=== PATIENT | female | born 1935 | race Caucasian/White ===

== ENCOUNTER 2018-10-28 19:43 | Inpatient (IN) | payer MEDICARE, OTHER ==
--- NOTE | 2018-10-28 20:06 | ED Physician Chart ---
ED Chief Complaint/HPI - Patient Information Date Seen:: 10/28/18 Time Seen:: 19:50 Chief Complaint:: aggressive behavior History of Present Illness:: At her extended care facility patient's been verbally abusive and striking out at staff. Patient was started on Augmentin 875 milligrams twice a day yesterday for cellulitis centered right elbow. Allergies:: Allergies Allergy/AdvReac Type Severity Reaction Status Date / Time lorazepam [From Ativan] AdvReac Verified 10/28/18 19:51 Vitals:: Vital Signs - 8 hr 10/28/18 19:45 Temp 98.1 F HR 61 RR 18 BP 113/52 O2 Sat % 98 Historian:: Patient Review:: Transfer documents Reviewed ED Review of Systems - Review of Systems General/Constitutional: No fever, No chills Skin: No skin lesions Head: No headache Eyes: No loss of vision ENT: No earache Neck: No neck pain Cardio Vascular: No chest pain Pulmonary: No SOB GI: No nausea, No vomiting, No diarrhea G/U: No dysuria Musculoskeletal: No bone or joint pain, No back pain, No muscle pain Endocrine: No polyuria Psychiatric: Prior psych history Hematopoietic: No bruising Allergic/Immuno: No urticaria Neurological: No syncope ED Past Medical History - Past Medical History Past Medical History: CAD, CVA/TIA, Seizures, Dementia, Other (abdominal hernia ; schizophrenia; depression; atrial fibrillation; anxiety) Family History: Other (unavailable) Social History: Care Facility Surgical History: other (unavailable) Psychiatricy History: Schizophrenia, Dementia Medication: Reviewed Family Medical History - Family Member Mother History Unknown: Yes ED Physical Exam - Physical Examination General/Constitutional: Well-developed, well-nourished, Alert Other Gen/Cons comments:: Patient is uncooperative for the physical examination Head: Atraumatic Eyes: Lids, conjuctiva normal, PERRL Skin: No rash, No ecchymosis Other Skin comments:: About 15 cm of erythema centered right elbow ENMT: External ears, nose nl Other ENMT comments:: Edentulous with upper dentures Neck: No nuchal rigidity Respiratory: Nl effort/Exclusion, Clear to Auscultation, No Wheeze/Rhonchi/Rales Other Cardio Vascular comments:: Patient uncooperative for auscultation of the heart or palpation of the pulse GI: No tenderness/rebounding/guarding, No organomegaly Extremities: Normal digits & nails Neuro/Psych: No focal deficits ED Labs/Radiology/EKG Results - Lab Results Results: Laboratory Results WBC 13.8 Th/cmm (4.8-10.8) H 10/28/18 20:15 RBC 4.36 Mil/cmm (3.80-5.20) 10/28/18 20:15 Hgb 13.8 gm/dL (12-16) 10/28/18 20:15 Hct 40.6 % (41.0-60) L 10/28/18 20:15 MCV 93.2 fl (81-100) 10/28/18 20:15 MCH 31.8 pg (27.0-31.0) H 10/28/18 20:15 MCHC Differential 34.1 pg (28.0-36.0) 10/28/18 20:15 RDW 16.7 % (11.5-20.0) 10/28/18 20:15 Plt Count 198 Th/cmm (150-400) 10/28/18 20:15 MPV 6.2 fl 10/28/18 20:15 Neutrophils % 83.4 % (40.0-80.0) H 10/28/18 20:15 Lymphocytes % 12.4 % (20.0-50.0) L 10/28/18 20:15 Monocytes % 3.8 % (2.0-10.0) 10/28/18 20:15 Eosinophils % 0.4 % (0.0-5.0) 10/28/18 20:15 Basophils % 0.0 % (0.0-2.0) 10/28/18 20:15 Sodium 136 mEq/L (136-145) 10/28/18 20:15 Potassium 4.0 mEq/L (3.5-5.1) 10/28/18 20:15 Chloride 100 mEq/L (98-107) 10/28/18 20:15 Carbon Dioxide 23.8 mEq/L (21.0-31.0) 10/28/18 20:15 Anion Gap 16.2 (7.0-16.0) H 10/28/18 20:15 BUN 20 mg/dL (7-25) 10/28/18 20:15 Creatinine 0.8 mg/dL (0.6-1.2) 10/28/18 20:15 Est GFR ( Amer) TNP 10/28/18 20:15 Est GFR (Non-Af Amer) TNP 10/28/18 20:15 BUN/Creatinine Ratio 25.0 10/28/18 20:15 Glucose 188 mg/dL (70-105) H 10/28/18 20:15 Calcium 8.3 mg/dL (8.6-10.3) L 10/28/18 20:15 Total Bilirubin 0.4 mg/dL (0.3-1.0) 10/28/18 20:15 AST 24 U/L (13-39) 10/28/18 20:15 ALT 60 U/L (7-52) H 10/28/18 20:15 Alkaline Phosphatase 45 U/L (34-104) 10/28/18 20:15 Total Protein 5.5 gm/dL (6.0-8.3) L 10/28/18 20:15 Albumin 3.2 gm/dL (3.7-5.3) L 10/28/18 20:15 Globulin 2.3 gm/dL 10/28/18 20:15 Albumin/Globulin Ratio 1.4 (1.0-1.8) 10/28/18 20:15 Triglycerides 217 mg/dL (<150) H 10/28/18 20:15 Cholesterol 179 mg/dL (<200) 10/28/18 20:15 LDL Cholesterol Direct 110 mg/dL (75-193) 10/28/18 20:15 HDL Cholesterol 55 mg/dL (23-92) 10/28/18 20:15 Valproic Acid 52.0 ug/mL (50.0-100.0) 10/28/18 20:15 - EKG Interpretations Rate & Rhythm: patient refused EKG but monitor showed normal sinus rhythm at a rate of 59 ED Assessment - Assessment General Assessment: For the cellulitis of her right arm patient may continue Augmentin 750 mg twice a day ED Septic Shock - . Is Septic Shock (SBP<90, OR Lactate>4 mmol\L) present?: No - <6hrs of presentation: Vital Signs: Vital Signs - 8 hr 10/28/18 19:45 Temp 98.1 F HR 61 RR 18 BP 113/52 O2 Sat % 98 ED Reassessment (Disposition) - Reassessment Reassessment Condition:: Unchanged - Diagnosis Diagnosis:: Aggressive behavior; dementia; anxiety; seizure disorder; cellulitis right arm; hyperglycemia; diabetes - Patient Disposition Admitted to:: [facility] Admitting Medical Physician:: Prabhu Wu Admitting Psych Physician:: Yomaira Aguirre Condition at Disposition:: Stable, Unchanged
[2018-10-28 20:26] LABS: % EOSINOPHILS 0.4 % (0.0-5.0); % LYMPHOCYTES 12.4 % (20.0-50.0); % MONOCYTES 3.8 % (2.0-10.0); % NEUTROPHILS 83.4 % (40.0-80.0); EOSINOPHILE ABSOLUTE 0.1 Th/cmm (0.1-0.4); HEMATOCRIT 40.6 % (41.0-60); HEMOGLOBIN 13.8 gm/dL (12-16); LYMPHOCYTE ABSOLUTE 1.7 Th/cmm (1.5-3.0); MEAN CELL VOLUME 93.2 fl (81-100); MEAN CORPUSCULAR HEMOGLOBIN 31.8 pg (27.0-31.0); MEAN CORPUSCULAR HGB CONC 34.1 pg (28.0-36.0); MEAN PLATELET VOLUME 6.2 fl; MONOCYTE ABSOLUTE 0.5 Th/cmm (0.3-1.0); NEUTROPHILE ABSOLUTE 11.5 Th/cmm (1.8-8.0); PLATELET COUNT 198 Th/cmm (150-400); RED BLOOD COUNT 4.36 Mil/cmm (3.80-5.20); RED CELL DISTRIBUTION WIDTH 16.7 % (11.5-20.0); WHITE BLOOD COUNT 13.8 Th/cmm (4.8-10.8)
[2018-10-28 20:55] LABS: ALB/GLOB RATIO 1.4 (1.0-1.8); ALBUMIN 3.2 gm/dL (3.7-5.3); ALKALINE PHOSPHATASE 45 U/L (34-104); ANION GAP 16.2 (7.0-16.0); BILIRUBIN,TOTAL 0.4 mg/dL (0.3-1.0); BUN - UREA NITROGEN 20 mg/dL (7-25); CALCIUM SERUM 8.3 mg/dL (8.6-10.3); CARBON DIOXIDE 23.8 mEq/L (21.0-31.0); CHLORIDE 100 mEq/L (98-107); CHOLESTEROL 179 mg/dL (<200); CREATININE - SERUM 0.8 mg/dL (0.6-1.2); GLUCOSE 188 mg/dL (70-105); HDL -HIGH DENSITY LIPOPROTEIN 55 mg/dL (23-92); SGOT 24 U/L (13-39); SGPT/ALT 60 U/L (7-52); SODIUM SERUM 136 mEq/L (136-145); TOTAL PROTEIN,SERUM 5.5 gm/dL (6.0-8.3); TRIGLYCERIDES 217 mg/dL (<150)
[2018-10-28 22:47] VITALS: BP 129/69
[2018-10-28] MEDS ORDERED: Magnesium Hydroxide (MOM) 30 mL UDC PO PRN (23:30)
[2018-10-29] MEDS: Amoxicillin/Clavulanat 875/125 Tab PO SCH ×2 (06:57→16:50)
[2018-10-29] MEDS: Multivitamin w/ Minerals Tab PO SCH (09:19)
[2018-10-29] MEDS ORDERED: Probiotic Screen MC PRN (13:00)
--- NOTE | 2018-10-29 18:50 | Psychiatric Evaluation ---
DATE OF SERVICE: 10/29/2018 INITIAL PSYCHIATRIC EVALUATION CHIEF COMPLAINT: Psychotic illness. HISTORY OF PRESENT ILLNESS: The patient is an 83-year-old female with a history of dementia and psychosis, who was sent from her [facility] facility for increased agitation, anger outburst, unprovoked. The patient is a very poor historian at this time. The patient was cleared through the ER and now she is on geropsychiatric unit. The patient's appetite is fair. The patient is disorganized. When approached of talk, she started to push the table away. PAST PSYCHIATRIC HISTORY: Psychosis, dementia and depression. PAST MEDICAL HISTORY: Refer to H and P. PAST PSYCHOSOCIAL HISTORY: The patient resides in a [facility] facility, requires complete care. FAMILY HISTORY: Noncontributory. MENTAL STATUS EXAM: The patient appears to be stated age. Speech is minimal, avoiding eye contact. The patient is oriented to person, not oriented to time or place. Insight is poor. Judgment fair. The patient appears to be paranoid, suspicious towards her surroundings, easily agitated. PATIENT'S STRENGTHS: The patient is passively accepting treatment. The patient's weakness, lack of insight. ASSESSMENT: Major depressive disorder with psychosis; dementia, Alzheimer's type. MEDICAL HISTORY: As per medical history stress severe. We will admit the patient for hospitalization. We will start individual and group therapy, assess psychopharmacological intervention. ESTIMATED LENGTH OF STAY: 7-8 days. CRITERIA FOR DISCHARGE: Improved condition. No agitation, further stabilization, aggressive air, safe disposition, outpatient treatment plan. [facility]# [id number]
[2018-10-30] MEDS: Amoxicillin/Clavulanat 875/125 Tab PO SCH ×2 (06:40→16:23)
[2018-10-30] MEDS: Multivitamin w/ Minerals Tab PO SCH (08:58)
--- NOTE | 2018-10-30 16:03 | History & Physical ---
ADMIT DATE: 10/29/2018 REASON FOR ADMISSION: Psychiatric evaluation. HISTORY OF PRESENT ILLNESS: This is an 83-year-old female with an underlying history of chronic AFib, seizure disorder, and hypertension, who lives at nursing facility, and [facility] for evaluation of underlying psychiatric illnesses by Dr. Aguirre. Dr. Aguirre requested a medical H and P on this patient. The patient's baseline seems very confused, difficult to communicate, and per nursing staff the patient is being treated for elbow cellulitis. She is currently on oral antibiotics. PAST MEDICAL HISTORY: ____. PAST SURGICAL HISTORY: ____. FAMILY HISTORY: None. SOCIAL HISTORY: Lives at a nursing facility. No reported alcohol, tobacco, or drug use. CURRENT MEDICATIONS: Per medication reconciliation. ALLERGIES: ALLERGIC TO LEVAQUIN. REVIEW OF SYSTEMS: Difficult to obtain and unreliable due to underlying confusion. PHYSICAL EXAMINATION: VITAL SIGNS: Temperature 97.6, pulse 87, respirations 20, blood pressure 170/85, 95% on room air. HEART: S1, S2 normal. LUNGS: Clear to auscultation. ABDOMEN: Soft, nontender. NEUROLOGIC: The patient is confused. Moves all extremities. SKIN: Right elbow erythema, mild swelling noted, multiple skin tears noted. EXTREMITIES: No edema. LABORATORY DATA: Available laboratory data has been reviewed. ASSESSMENT: 1. Cellulitis of right elbow. 2. Superficial skin care for bilateral upper extremities. 3. Chronic atrial fibrillation. 4. Hypertension. 5. ____. 6. Dementia ____. 7. Seizure disorders. 8. Overactive bladder. PLAN: The patient will be continued on Augmentin, continued on Xarelto. Continue on metoprolol, seizure medications, seizure precautions, and daily wound care. Psych management per psychiatrist. The patient's condition discussed with nursing staff. Thank you Dr. Aguirre for allowing me to participate in the care of this patient. JOB# [id number]
--- NOTE | 2018-10-30 23:19 | Progress Notes ---
DATE: 10/30/2018 SUBJECTIVE: The patient was seen, discussed with staff, chart reviewed. Still irritable, anxious, guarded, still paranoid, having yelling episodes, episodes of refusing care. The patient, however, starts to comply with medications. Appetite and sleep are fair. Insight is still limited. Judgment is impaired. ASSESSMENT: The patient is still in psychotic phase, highly still agitated and forgetful and confused. PLAN: Continue medication management. Continue supportive measures. Continue stabilization. The patient is taking Depakote and she can probably benefit from adding small dose of Seroquel. Monitor closely. JOB# [id number]
[2018-10-31] MEDS: Amoxicillin/Clavulanat 875/125 Tab PO SCH ×2 (06:35→16:41)
[2018-10-31] MEDS: Multivitamin w/ Minerals Tab PO SCH (08:33)
--- NOTE | 2018-10-31 14:00 | Progress Notes ---
DATE: 10/31/2018 SUBJECTIVE: Staff was spoken to. The patient is interviewed. Mood is noted to be irritable. Affect is constricted. Insight and judgment at this time are noted to be still impaired. Impulse control is noted to be limited. Coping skills are noted to be limited. The patient has been screaming and yelling and the patient needs to be redirected. The patient has no insight into her illness. ASSESSMENT: The patient is still impulsive. PLAN: To continue the patient with the supportive therapy. I encouraged the patient to verbalize the concerns rather than to act out. JOB# [id number]
--- NOTE | 2018-10-31 19:15 | Consultation ---
DATE OF CONSULTATION: 10/30/2018 REFERRING PHYSICIAN: Yomaira Aguirre M.D. TYPE OF CONSULTATION: Psychology. HISTORY OF PRESENT ILLNESS: The patient is an 83-year-old female. The following is by record review by the patient's self report. The patient is being admitted due to increased agitation and anger outbursts. Upon interview, the patient is guarded and suspicious and is not providing much information. The patient shook her head no to the question of experiencing any suicidal ideation , plan or intention. PAST MEDICAL HISTORY: Please see history and physical. PAST PSYCHIATRIC HISTORY: The patient has a history of dementia with psychosis and depression. The patient is under the care of a psychiatrist at her placement. The patient has been seen by this insurance writer in the past at her care home facility. The patient is under the care of a different psychologist currently. SUBSTANCE ABUSE HISTORY: The patient did not answer these questions. PSYCHOSOCIAL HISTORY: The patient is . The patient did not answer questions about other family members or having any children. The patient did not answer questions about occupational or educational history or [employer]ar[employer] affiliation. The patient did not answer questions about history of physical or sexual abuse or current legal problems. MENTAL STATUS EXAMINATION: The patient appears to be her stated age. The patient's attitude is guarded, but superficially cooperative. Eye contact is poor. Speech is minimal. Mood is irritable. Affect is constricted. Thought process shows to be confused. The patient denied any auditory or visual hallucinations or any delusions; however, there may be some paranoid ideation. The patient has been difficult to redirect on the unit. Impulse control is poor. Concentration is poor. The patient did not participate in the memory assessment. Sensorium is alert and oriented to self and place only. The patient did not participate in the interpretation of proverbs. Insight is poor. Judgment is poor. DIAGNOSTIC IMPRESSION: AXIS I: 1. History of dementia with behavioral disturbance. 2. Major depressive disorder with psychotic symptoms. AXIS II: Deferred. AXIS III: See H and P. TREATMENT PLAN: The patient has been seen by Dr. Aguirre for psychiatric evaluation and for the management of the patient's psychotropic medications. We will provide supportive psychotherapy to include reality orientation, differentiation and integration. We will provide de-escalation and limit setting as well as anger management. We will encourage the patient to demonstrate emotional and self-regulation. We will provide motivational enhancement for the patient to become compliant and stay compliant with all aspects of her care and treatment. We will provide coping strategies for phase of life issues. Thank you, Dr. Aguirre, for this consult and the opportunity to participate in this patient's care. JOB# [id number] MTDD
--- NOTE | 2018-10-31 20:01 | General Progress Note ---
Subjective - Review of Systems Service Date: 10/31/18 Subjective: Patient seen and examined with the nurse No new concern reported Objective - Results Result Diagrams: 10/28/18 20:15 10/28/18 20:15 Recent Labs: Laboratory Last Values WBC 13.8 Th/cmm (4.8-10.8) H 10/28/18 20:15 RBC 4.36 Mil/cmm (3.80-5.20) 10/28/18 20:15 Hgb 13.8 gm/dL (12-16) 10/28/18 20:15 Hct 40.6 % (41.0-60) L 10/28/18 20:15 MCV 93.2 fl (81-100) 10/28/18 20:15 MCH 31.8 pg (27.0-31.0) H 10/28/18 20:15 MCHC Differential 34.1 pg (28.0-36.0) 10/28/18 20:15 RDW 16.7 % (11.5-20.0) 10/28/18 20:15 Plt Count 198 Th/cmm (150-400) 10/28/18 20:15 MPV 6.2 fl 10/28/18 20:15 Neutrophils % 83.4 % (40.0-80.0) H 10/28/18 20:15 Lymphocytes % 12.4 % (20.0-50.0) L 10/28/18 20:15 Monocytes % 3.8 % (2.0-10.0) 10/28/18 20:15 Eosinophils % 0.4 % (0.0-5.0) 10/28/18 20:15 Basophils % 0.0 % (0.0-2.0) 10/28/18 20:15 Sodium 136 mEq/L (136-145) 10/28/18 20:15 Potassium 4.0 mEq/L (3.5-5.1) 10/28/18 20:15 Chloride 100 mEq/L (98-107) 10/28/18 20:15 Carbon Dioxide 23.8 mEq/L (21.0-31.0) 10/28/18 20:15 Anion Gap 16.2 (7.0-16.0) H 10/28/18 20:15 BUN 20 mg/dL (7-25) 10/28/18 20:15 Creatinine 0.8 mg/dL (0.6-1.2) 10/28/18 20:15 Est GFR ( Amer) TNP 10/28/18 20:15 Est GFR (Non-Af Amer) TNP 10/28/18 20:15 BUN/Creatinine Ratio 25.0 10/28/18 20:15 Glucose 188 mg/dL (70-105) H 10/28/18 20:15 Calcium 8.3 mg/dL (8.6-10.3) L 10/28/18 20:15 Total Bilirubin 0.4 mg/dL (0.3-1.0) 10/28/18 20:15 AST 24 U/L (13-39) 10/28/18 20:15 ALT 60 U/L (7-52) H 10/28/18 20:15 Alkaline Phosphatase 45 U/L (34-104) 10/28/18 20:15 Total Protein 5.5 gm/dL (6.0-8.3) L 10/28/18 20:15 Albumin 3.2 gm/dL (3.7-5.3) L 10/28/18 20:15 Globulin 2.3 gm/dL 10/28/18 20:15 Albumin/Globulin Ratio 1.4 (1.0-1.8) 10/28/18 20:15 Triglycerides 217 mg/dL (<150) H 10/28/18 20:15 Cholesterol 179 mg/dL (<200) 10/28/18 20:15 LDL Cholesterol Direct 110 mg/dL (75-193) 10/28/18 20:15 HDL Cholesterol 55 mg/dL (23-92) 10/28/18 20:15 TSH 0.72 uIU/ml (0.34-5.60) 10/28/18 20:15 Valproic Acid 52.0 ug/mL (50.0-100.0) 10/28/18 20:15 - Physical Exam Vitals and I&O: Vital Signs Temp 97.8 F 10/31/18 14:00 Pulse 88 10/31/18 14:00 Resp 20 10/31/18 14:00 BP 137/90 10/31/18 14:00 Pulse Ox 97 10/31/18 14:00 Intake & Output 0210/31/18 11/01/18 06:59 18:59 06:59 Intake Total 700 Balance 700 Intake: Oral 700 Other: # Voids 2 # Bowel Movements 0 Active Medications: Current Medications Acetaminophen (Tylenol) 650 mg PO Q6HR PRN PRN Reason: Pain or Fever >101 Stop: 12/27/18 23:27 Amoxicillin/Clavulanate Potassium (Augmentin 875-125mg) 1 tab PO BIDAC [facility] Stop: 11/04/18 16:31 Last Admin: 10/31/18 16:41 Dose: 1 tab Bupropion HCl (Wellbutrin) 100 mg PO BID [facility]; Protocol Stop: 12/28/18 08:59 Last Admin: 10/31/18 16:41 Dose: 100 mg Dexamethasone (Decadron) 4 mg PO BID [facility] Stop: 12/28/18 08:59 Last Admin: 10/31/18 16:41 Dose: 4 mg Divalproex Sodium (Depakote Dr) 250 mg PO 1700 [facility]; Protocol Stop: 12/28/18 16:59 Last Admin: 10/31/18 16:42 Dose: 250 mg Divalproex Sodium (Depakote Dr) 500 mg PO DAILY [facility]; Protocol Stop: 12/28/18 08:59 Last Admin: 10/31/18 08:31 Dose: 500 mg Docusate Sodium (Colace) 100 mg PO BID [facility] Stop: 12/28/18 08:59 Last Admin: 10/31/18 16:42 Dose: 100 mg Donepezil HCl (Aricept) 5 mg PO DAILY [facility] Stop: 12/28/18 08:59 Last Admin: 10/31/18 08:31 Dose: 5 mg Estradiol (Estrace) 2 mg PO DAILY [facility]; Protocol Stop: 12/28/18 08:59 Last Admin: 10/31/18 08:32 Dose: 2 mg Magnesium Hydroxide (Milk Of Magnesia) 30 ml PO Q6HR PRN PRN Reason: Constipation Stop: 12/27/18 23:29 Metoprolol Tartrate (Lopressor) 12.5 mg PO BID [facility] Stop: 12/28/18 08:59 Last Admin: 10/31/18 16:42 Dose: Not Given Miscellaneous (Probiotic Screen) 1 ea MC PRN PRN PRN Reason: PROTOCOL Stop: 12/28/18 12:59 Mupirocin (Bactroban Oint) 1 appl NS BID [facility] Stop: 11/05/18 09:01 Last Admin: 10/31/18 16:42 Dose: Not Given Nitroglycerin (Nitrostat) 0.4 mg SL Q5MIN PRN PRN Reason: Chest Pain Stop: 12/28/18 11:19 Oxcarbazepine (Trileptal) 300 mg PO BID [facility]; Protocol Stop: 12/28/18 08:59 Last Admin: 10/31/18 16:43 Dose: 300 mg Oxybutynin Chloride (Ditropan) 5 mg PO BID [facility] Stop: 12/28/18 08:59 Last Admin: 10/31/18 16:43 Dose: 5 mg Quetiapine Fumarate (Seroquel) 12.5 mg PO HS [facility]; Protocol Stop: 12/29/18 20:59 Last Admin: 10/31/18 03:12 Dose: Not Given Rivaroxaban (Xarelto) 15 mg PO DAILY [facility] Stop: 12/28/18 08:59 Last Admin: 10/31/18 08:33 Dose: 15 mg Zolpidem Tartrate (Ambien) 5 mg PO HS PRN PRN Reason: Insomnia Stop: 12/27/18 23:20 Cardiovascular: Regular rate Lungs: Clear to auscultation Skin: Other (Bilateral arm skin tear ) Assessment/Plan - Assessment Assessment: Bilateral arm superficial lacertion Right elbow cellutitis HTN Seizure disorder Dementia with behaviour disturbance - Plan Plan: Continue augmentin Continue daily wound care Metoprolol Aspiration and fall precaution Psych follow up Nutritional Asmnt/Malnutr-PDOC - Dietary Evaluation Malnutrition Findings (Please click <Entered> for more info): Nutritional Asmnt/Malnutrition Start: 10/29/18 15: 30 Text: Status: Complete Freq: Protocol: Document 10/29/18 15:30 LCHENG (Rec: 10/29/18 15:42 [id number] [id number]) Nutritional Asmnt/Malnutrition Patient General Information Nutritional Screening High Risk Consult Diagnosis psychosis Pertinent Medical Hx/Surgical Hx CAD, CVA/TID, seizure, dementia, abdominal hernia, schizophrenia, depression, afib, anxiety, schizophrenia Subjective Information Consult received for elevated glucose and multiple skin tear . Pt seen sitting in cristhian- chair having lunch. pt is a feeder, eats well. Current Diet Order/ Nutrition Support [facility] soft chopped, ground meat Pertinent Medications colace, amoxicillin Pertinent Labs 10/28 Glucose 188, Ca 8.3, Alb 3.2 Nutritional Hx/Data Height 1.63 m Height (Calculated Centimeters) 162.6 Current Weight (lbs) 63.503 kg Weight (Calculated Kilograms) 63.5 Weight (Calculated Grams) 84947.9 [place] Body Weight 120 Body Mass Index (BMI) 24.0 Weight Status Approriate GI Symptoms GI Symptoms None Last BM not indicated Difficult in: None Skin Integrity/Comment: multiple skin tears bilateral upper extremities per wound care note hoa 15 Estimated Nutritional Goals BEE in Kcals: Using Current wt Calories/Kcals/Kg 25-30 Kcals Calculated 0989-2585 Protein: Using Current wt Protein g/k Protein Calculated 64 Fluid: ml 1600-1920ml (1ml/kcal) Nutritional Problem 1. Problem Problem altered nutrition related labs Etiology possible endocrine dysfunction Signs/Symptoms: glucose 188 No current Nutrition Prob Problem n/A Malnutrition Alert Is there a minimum of two criteria No selected? Query Text:Check all the applicable criteria. A minimum of two criteria are recommended for diagnosis of either severe or non-severe malnutrition. Malnutrition Related to Morbid Obesity Malnutrition related to morbid obesity No Intervention/Recommendation Comments 1. Continue with [facility] soft chopped diet wtih grounded meat as ordered. Add Ensure one bottle daily since we do not carry Resource. 2. Monitor glucose level, consider checking A1c level to assess the need for CCHO diet . If glucose continue elevated , recommend adding CCHO diet. 2. Monitor PO intake, wt, labs and skin integrity 3. F/U as moderate risk in 3-5 days Expected Outcomes/Goals Expected Outcomes/Goals 1. PO intake to meet at least 75% of nutritional needs. 2. Wt stability, skin to remain intact, labs to approach WNL.
[2018-11-01] MEDS: Amoxicillin/Clavulanat 875/125 Tab PO SCH ×2 (06:46→16:59)
[2018-11-01] MEDS: Multivitamin w/ Minerals Tab PO SCH (08:55)
--- NOTE | 2018-11-02 | Progress Notes ---
DATE: 11/01/2018 SUBJECTIVE: Staff was spoken to. The patient is interviewed. Mood swings are still a problem. The patient's insight and judgment are noted to be still impaired. The patient is currently on oxcarbazepine and valproic acid. The patient is also on Seroquel, which is being given at 12.5 mg. In view of the mood swings and irritability, it is decided to increase the dose on the Seroquel to 25 mg tonight and follow the patient with supportive therapy. JOB# [id number]
[2018-11-02] MEDS: Amoxicillin/Clavulanat 875/125 Tab PO SCH ×2 (07:00→17:55)
[2018-11-02] MEDS: Multivitamin w/ Minerals Tab PO SCH (09:04)
--- NOTE | 2018-11-02 19:25 | Progress Notes ---
DATE: 11/01/2018 PSYCHOLOGY PROGRESS NOTE SUBJECTIVE: The patient is seen and is interviewed. Case is discussed with staff. The patient presents as still having difficulty with mood fluctuation and mood swings. The patient is irritable, as well as guarded and suspicious. The patient is stating that she does not need to be hospitalized or take any medication. OBJECTIVE: Mood is labile. Affect is broad and expansive. Thought process shows her to have loose associations and is markedly tangential. The patient denied any auditory or visual hallucinations. The patient's behavior has been difficult to redirect. However, the patient is taking her p.o. medications. ASSESSMENT AND PLAN: The patient continues to be irritable with mood swings. We provided de-escalation. We provided coping strategies. We provided motivational enhancement for the patient to become compliant and stay compliant with all aspects of her care and treatment. We provided coping strategies for chronic severe mental illness. We encouraged the patient to follow through with staff direction. We will continue to provide supportive therapy. We will follow up in 2-3 days to continue the present treatment. JOB# [id number] NI
--- NOTE | 2018-11-03 04:47 | Progress Notes ---
DATE: 11/02/2018 SUBJECTIVE: Staff was spoken to. The patient is interviewed. Mood is noted to be depressed. Affect is constricted. The patient is isolative and withdrawn. Insight and judgment are noted to be still impaired. Impulse control is noted to be limited. The patient is currently on Seroquel low dose and has been getting the oxcarbazepine 300 mg twice a day along with valproic acid and bupropion. The patient has been able to tolerate the medication. ASSESSMENT: The patient is still having mood swings and depression. PLAN: To continue the patient with the supportive therapy, encouraged the patient to verbalize the concerns rather than to act out. JOB# [id number]
[2018-11-03] MEDS: Amoxicillin/Clavulanat 875/125 Tab PO SCH ×2 (07:01→17:00)
[2018-11-03] MEDS: Multivitamin w/ Minerals Tab PO SCH (09:55)
[2018-11-03] MEDS: Docusate Sodium 100 mg/10 mL UD PO SCH (17:44)
--- NOTE | 2018-11-03 20:12 | Progress Notes ---
DATE: 11/03/2018 SUBJECTIVE: Staff was spoken to. The patient is interviewed. Mood is noted to be irritable. Affect is constricted. The patient is getting easily irritable, angry and has been spitting the medications out and hence the Depakote has been changed to Depakene. ASSESSMENT: The patient is still impulsive. PLAN: To continue the patient with the supportive therapy and followup. [facility]# [id number]
--- NOTE | 2018-11-03 22:56 | Progress Notes ---
DATE: 11/03/2018 PSYCHOLOGY PROGRESS NOTE SUBJECTIVE: The patient is seen and is interviewed. Case is discussed with staff. The patient presents as depressed. The staff reports the patient continues to be isolative and withdrawn. The patient's impulse control is poor. The patient is experiencing mood swings with severe depression. The patient responded to the clinical questions in a very slow and delayed manner and was having difficulty expressing reasons for her depression. OBJECTIVE: Mood is severely depressed. Affect is blunted. Thought process is depressogenic. The patient verbalized a passive wish to . The patient denied any hallucinations or delusions. The patient's behavior has been withdrawn and isolative. ASSESSMENT AND PLAN: The patient continues to have mood swings with severe episodes of depression. We provided cognitive behavioral therapy; however, the patient is not able to demonstrate a capacity to benefit from this type of intervention. Therefore, we provided insight oriented therapy along with coping strategies for phase of life issues. We encouraged the patient to stay compliant with all aspects for care and treatment. Motivational enhancement was provided for the patient to get out of bed and participate in the milieu therapy here on the unit. We will continue to provide supportive psychotherapy throughout the patient's hospital stay. We will follow up in 2-3 days to continue the present treatment. [facility]# [id number]
[2018-11-04] MEDS: Amoxicillin/Clavulanat 875/125 Tab PO SCH ×2 (06:50→16:30)
[2018-11-04] MEDS: Multivitamin w/ Minerals Tab PO SCH (10:51)
[2018-11-04] MEDS: Docusate Sodium 100 mg/10 mL UD PO SCH (10:53)
--- NOTE | 2018-11-05 04:23 | Progress Notes ---
DATE: 11/04/2018 PSYCHIATRIC PROGRESS NOTE SUBJECTIVE: Staff was spoken to. The patient is interviewed. Mood is noted to be irritable. Affect is constricted. Insight and judgment are noted to be still impaired. Impulse control seems to be limited. The patient tends to get easily agitated when she does not get her way. The patient's coping skills are noted to be poor at this time. Sleep and appetite are noted to be improving. No side effects to the medications are noted. ASSESSMENT: The patient's impulsivity is improving at this time. PLAN: To continue the patient with the supportive therapy, encouraged the patient to verbalize the concerns rather than to act out. Plan to closely monitor the patient for any side effects from the medication. [facility]# [id number]
[2018-11-05] MEDS: Multivitamin w/ Minerals Tab PO SCH (09:00)
[2018-11-05] MEDS: Docusate Sodium 100 mg/10 mL UD PO SCH ×2 (09:00→12:23)
--- NOTE | 2018-11-06 20:49 | Progress Notes ---
DATE: 11/05/2018 PSYCHOLOGY PROGRESS NOTE SUBJECTIVE: The patient is seen and is interviewed. Case is discussed with staff. The patient continues to present as guarded. The patient seems to be less agitated today during this visit. The patient has become more compliant with her care and treatment according to the staff. OBJECTIVE: Mood is less irritable. Affect is constricted. Thought process shows to be more goal oriented but confused. The patient denied any delusions or hallucinations. The patient's behavior has become more redirectable and compliant with care. ASSESSMENT AND PLAN: The patient's impulsivity is improving. We provided positive reinforcement for the patient to stay compliant with all aspects of her care and treatment. We provided coping strategies for phase of life issues. We encouraged the patient to demonstrate emotional and self-regulation and to verbalize her concerns versus acting out. No followup is indicated as the patient is probably discharging today. Prognosis is fair. Thank you, Dr. Rodarte for this consult and the opportunity to participate in this patient's care. JOB# [id number] NI
== END 2018-11-05 14:30 | DRG 885 ==
LOC: ER 19:43 → GERO 21:30
DX: F32.3 Major depressive disorder, single episode, severe with psychotic features (principal); E11.65 Type 2 diabetes mellitus with hyperglycemia; L03.113 Cellulitis of right upper limb; F02.81 Dementia in other diseases classified elsewhere, unspecified severity, with behavioral disturbance; I48.2 Chronic atrial fibrillation; I25.10 Atherosclerotic heart disease of native coronary artery without angina pectoris; G40.909 Epilepsy, unspecified, not intractable, without status epilepticus; N32.81 Overactive bladder; S41.111A Laceration without foreign body of right upper arm, initial encounter; X58.XXXA Exposure to other specified factors, initial encounter; Y93.89 Activity, other specified; Y92.89 Other specified places as the place of occurrence of the external cause; Y99.8 Other external cause status; Z86.73 Personal history of transient ischemic attack (TIA), and cerebral infarction without residual deficits; Z88.8 Allergy status to other drugs, medicaments and biological substances
CPT/HCPCS: 36415-UA; 80053-TC; 80061-TC; 80164-TC; 83036-90; 84443-TC; 85025-TC; 86592-TC; J8540; Z7610